=== PATIENT | female | born 1960 | race African-American/Black ===

== ENCOUNTER → 2017-01-26 | Outpatient (CLI) | payer OTHER ==
[2017-01-26 11:13] LABS: BLOOD UREA NITROGEN 17 mg/dL (7-18)
[2017-01-26 11:22] LABS: ASPARTATE AMINO TRANSFERASE 11 U/L (15-37)
[2017-01-27 16:07] LABS: ANA DIRECT (REF) Negative (Negative)
== END | disposition home or self-care (01) ==
LOC: LAB 10:30
PROVIDERS: ATTEND Internal Medicine
DX: R74.8 Abnormal levels of other serum enzymes (principal); R79.82 Elevated C-reactive protein (CRP); M50.30 Other cervical disc degeneration, unspecified cervical region; M25.579 Pain in unspecified ankle and joints of unspecified foot; M25.549 Pain in joints of unspecified hand; E78.00 Pure hypercholesterolemia, unspecified; M54.5 Low back pain; R73.01 Impaired fasting glucose; M25.50 Pain in unspecified joint
CPT/HCPCS: 36415; 80053; 80061; 82977; 83036; 84550; 85651; 86038; 86140; 86200; 86430

== ENCOUNTER → 2017-02-08 | Outpatient (CLI) | payer OTHER | END | disposition home or self-care (01) | LOC: CFH 15:58 | PROVIDERS: ATTEND Internal Medicine | DX: M19.072 Primary osteoarthritis, left ankle and foot (principal); M70.52 Other bursitis of knee, left knee; G89.29 Other chronic pain; R60.1 Generalized edema ==

== ENCOUNTER → 2018-01-02 | Outpatient (CLI) | payer OTHER | LOC: CFH 10:40 | PROVIDERS: ATTEND Internal Medicine | DX: Z12.31 Encounter for screening mammogram for malignant neoplasm of breast (principal) | CPT/HCPCS: 77063; 77067 ==

== ENCOUNTER → 2018-02-20 | Outpatient (CLI) | payer OTHER ==
[2018-02-20 12:21] LABS: BASOPHILS # (AUTO) 0.04 x10^3/uL (0-0.1); BASOPHILS % (AUTO) 1 % (0-1); EOSINOPHILS # (AUTO) 0.05 x10^3/uL (0-0.4); EOSINOPHILS % (AUTO) 1 % (1-7); LYMPHOCYTES # (AUTO) 3.14 x10^3/uL (1-3.4); LYMPHOCYTES % (AUTO) 42 % (22-44); MD NO; MEAN CORPUSCULAR HEMOGLOBIN 26.9 pg (27.0-34.8); MEAN CORPUSCULAR HGB CONC 32.8 g/dL (32.4-35.8); MEAN CORPUSCULAR VOLUME 81.9 fL (80-100); MEAN PLATELET VOLUME 9.2 fL (7.4-10.4); MONOCYTES # (AUTO) 0.28 x10^3/uL (0.2-0.8); MONOCYTES % (AUTO) 4 % (2-9); NEUTROPHILS # (AUTO) 4.02 x10^3/uL (1.8-6.8); NEUTROPHILS % (AUTO) 53 % (42-75); PLATELET COUNT 255 x10^3/uL (130-400); RED CELL DISTRIBUTION WIDTH 15.4 % (9.6-15.2)
[2018-02-20 12:28] LABS: HCT (SEDRATE) 37.7 % (34.6-47.8)
[2018-02-20 12:31] LABS: CHLORIDE 107 mmol/L (98-107)
[2018-02-20 12:44] LABS: ALANINE AMINOTRANSFERASE 19 U/L (12-78); ALBUMIN 3.5 g/dL (3.4-5.0); ALKALINE PHOSPHATASE 103 U/L (45-117); ANION GAP 8 mmol/L (5-15); BILIRUBIN,TOTAL 0.5 mg/dL (0.2-1.0); CALCIUM 8.7 mg/dL (8.5-10.1); CHOL/HDL RATIO 4.4; CHOLESTEROL, TOTAL 177 mg/dL (140-239); CREATININE 0.87 mg/dL (0.55-1.02); HDL CHOL % 23 % (28-40); HDL CHOLESTEROL (DIRECT) 40 mg/dL (40-60); LDL CHOLESTEROL,CALCULATED 113 mg/dL (54-169); LDL/HDL RATIO 2.8 (0.5-3.0); TOTAL PROTEIN 7.5 g/dL (6.4-8.2); TRIGLYCERIDES 122 mg/dL (50-200); VLDL CHOLESTEROL 24 mg/dL (0-25)
[2018-02-20 12:58] LABS: HEMOGLOBIN A1C 6.6 % (4.2-6.3)
== END | disposition home or self-care (01) ==
LOC: LAB 12:01
PROVIDERS: ATTEND Internal Medicine
DX: E78.00 Pure hypercholesterolemia, unspecified (principal); K21.9 Gastro-esophageal reflux disease without esophagitis; M25.549 Pain in joints of unspecified hand; R73.03 Prediabetes
CPT/HCPCS: 36415; 80053; 80061; 83036; 85025; 85651; 86140

== ENCOUNTER → 2018-06-12 | Outpatient (CLI) | payer OTHER ==
[2018-06-12 12:57] LABS: ANION GAP 8 mmol/L (5-15); CALCIUM 8.9 mg/dL (8.5-10.1); CHLORIDE 110 mmol/L (98-107); CREATININE 0.91 mg/dL (0.55-1.02)
[2018-06-12 13:02] LABS: HEMOGLOBIN A1C 6.1 % (4.2-6.3)
== END | disposition home or self-care (01) ==
LOC: LAB 12:29
PROVIDERS: ATTEND Internal Medicine
DX: E11.9 Type 2 diabetes mellitus without complications (principal)
CPT/HCPCS: 36415; 80048; 82043; 82570; 83036

== ENCOUNTER → 2019-03-07 | Outpatient (CLI) | payer OTHER ==
[2019-03-07 10:32] LABS: ALANINE AMINOTRANSFERASE 19 U/L (12-78); ANION GAP 8 mmol/L (5-15); CHLORIDE 108 mmol/L (98-107); CHOLESTEROL, TOTAL 170 mg/dL (140-239); CREATININE 0.96 mg/dL (0.55-1.02); TRIGLYCERIDES 159 mg/dL (50-200); VLDL CHOLESTEROL 32 mg/dL (0-25)
[2019-03-07 10:34] LABS: CHOL/HDL RATIO 3.3; HDL CHOL % 30 % (28-40); HDL CHOLESTEROL (DIRECT) 51 mg/dL (40-60); LDL CHOLESTEROL,CALCULATED 87 mg/dL (54-169); LDL/HDL RATIO 1.7 (0.5-3.0)
[2019-03-07 10:56] LABS: HEMOGLOBIN A1C 6.3 % (4.2-6.3)
== END | disposition home or self-care (01) ==
LOC: LAB 10:06
PROVIDERS: ATTEND Internal Medicine
DX: E78.00 Pure hypercholesterolemia, unspecified (principal); E11.9 Type 2 diabetes mellitus without complications
CPT/HCPCS: 36415; 80048; 80061; 83036; 84460

== ENCOUNTER → 2019-03-22 | Outpatient (CLI) | payer OTHER | END | disposition home or self-care (01) | LOC: RAD 08:50 | PROVIDERS: ATTEND Internal Medicine | DX: M18.9 Osteoarthritis of first carpometacarpal joint, unspecified (principal); M19.032 Primary osteoarthritis, left wrist; M25.732 Osteophyte, left wrist; E11.9 Type 2 diabetes mellitus without complications; E78.00 Pure hypercholesterolemia, unspecified; K21.9 Gastro-esophageal reflux disease without esophagitis; Z88.0 Allergy status to penicillin; Z88.1 Allergy status to other antibiotic agents; Z88.5 Allergy status to narcotic agent; Z88.6 Allergy status to analgesic agent; Z79.84 Long term (current) use of oral hypoglycemic drugs ==

== ENCOUNTER → 2019-09-26 | Outpatient (CLI) | payer OTHER ==
[2019-09-26 08:15] LABS: MEAN CORPUSCULAR HEMOGLOBIN 26.5 pg (27.0-34.8); MEAN CORPUSCULAR HGB CONC 32.1 g/dL (32.4-35.8); MEAN CORPUSCULAR VOLUME 82.6 fL (80-100); MEAN PLATELET VOLUME 8.8 fL (7.4-10.4); PLATELET COUNT 285 x10^3/uL (130-400); RED BLOOD COUNT 5.03 x10^6/uL (3.82-5.3); RED CELL DISTRIBUTION WIDTH 14.8 % (9.6-15.2)
[2019-09-26 08:25] LABS: ALBUMIN 3.7 g/dL (3.4-5.0); ANION GAP 8 mmol/L (5-15); CALCIUM 8.8 mg/dL (8.5-10.1); CHLORIDE 112 mmol/L (98-107)
[2019-09-26 09:19] LABS: ALANINE AMINOTRANSFERASE 16 U/L (12-78); ALKALINE PHOSPHATASE 107 U/L (45-117); BILIRUBIN,TOTAL 0.5 mg/dL (0.2-1.0); CHOL/HDL RATIO 4.4; CHOLESTEROL, TOTAL 191 mg/dL (140-239); CREATININE 0.96 mg/dL (0.55-1.02); HDL CHOL % 23 % (28-40); HDL CHOLESTEROL (DIRECT) 43 mg/dL (40-60); LDL CHOLESTEROL,CALCULATED 126 mg/dL (54-169); LDL/HDL RATIO 2.9 (0.5-3.0); TOTAL PROTEIN 7.7 g/dL (6.4-8.2); TRIGLYCERIDES 109 mg/dL (50-200); VLDL CHOLESTEROL 22 mg/dL (0-25)
[2019-09-26 10:19] LABS: HCT (SEDRATE) 41.6 % (34.6-47.8)
== END | disposition home or self-care (01) ==
LOC: LAB 07:58
PROVIDERS: ATTEND Internal Medicine
DX: E11.9 Type 2 diabetes mellitus without complications (principal); E78.00 Pure hypercholesterolemia, unspecified; K21.9 Gastro-esophageal reflux disease without esophagitis; K59.00 Constipation, unspecified; M25.50 Pain in unspecified joint; M25.532 Pain in left wrist; M25.549 Pain in joints of unspecified hand; R70.0 Elevated erythrocyte sedimentation rate; R74.8 Abnormal levels of other serum enzymes; R79.82 Elevated C-reactive protein (CRP)
CPT/HCPCS: 36415; 80053; 80061; 82043; 82570; 83036; 84443; 85027; 85651; 86140

== ENCOUNTER → 2020-03-03 | Outpatient (CLI) | payer OTHER | END | disposition home or self-care (01) | LOC: CFH 12:06 | PROVIDERS: ATTEND Internal Medicine | DX: R07.89 Other chest pain (principal) | CPT/HCPCS: 78452; 93017; A9502 ==

== ENCOUNTER 2020-05-15 12:15 | Outpatient (CLI) | payer OTHER ==
[2020-05-15] MEDS ORDERED: OMNIPAQUE 350 MG/ML, 100ML BOTTLE ONE ×2 (14:19→14:20)
== END 2020-05-15 23:59 | disposition home or self-care (01) ==
LOC: CFH 12:15
PROVIDERS: ATTEND Internal Medicine
DX: R10.31 Right lower quadrant pain (principal); R07.89 Other chest pain; Z90.710 Acquired absence of both cervix and uterus
CPT/HCPCS: 71260; 74177; Q9967

== ENCOUNTER → 2020-06-15 | Outpatient (CLI) | payer OTHER | END | disposition home or self-care (01) | LOC: CFH 13:18 | PROVIDERS: ATTEND Internal Medicine | DX: Z12.31 Encounter for screening mammogram for malignant neoplasm of breast (principal) | CPT/HCPCS: 77063; 77067 ==

== ENCOUNTER → 2020-07-16 | Outpatient (CLI) | payer OTHER ==
[2020-07-16 10:02] LABS: BASOPHILS % (AUTO) 1 % (0-1); EOSINOPHILS % (AUTO) 1 % (1-7); LYMPHOCYTES % (AUTO) 41 % (22-44); MEAN CORPUSCULAR HEMOGLOBIN 26.3 pg (27.0-34.8); MEAN CORPUSCULAR HGB CONC 31.5 g/dL (32.4-35.8); MEAN PLATELET VOLUME 8.8 fL (7.4-10.4); MONOCYTES % (AUTO) 4 % (2-9); NEUTROPHILS % (AUTO) 54 % (42-75); PLATELET COUNT 289 x10^3/uL (130-400); RED BLOOD COUNT 4.93 x10^6/uL (3.82-5.3); RED CELL DISTRIBUTION WIDTH 14.4 % (9.6-15.2)
[2020-07-16 10:08] LABS: ALANINE AMINOTRANSFERASE 18 U/L (12-78); ALBUMIN 3.8 g/dL (3.4-5.0); ANION GAP 6 mmol/L (5-15); CALCIUM 9.4 mg/dL (8.5-10.1); CHLORIDE 109 mmol/L (98-107); CREATININE 0.91 mg/dL (0.55-1.02)
[2020-07-16 10:13] LABS: MD NO
[2020-07-16 10:16] LABS: ALKALINE PHOSPHATASE 110 U/L (45-117); BILIRUBIN,TOTAL 0.4 mg/dL (0.2-1.0); CHOL/HDL RATIO 4.1; CHOLESTEROL, TOTAL 187 mg/dL (140-239); HDL CHOL % 25 % (28-40); HDL CHOLESTEROL (DIRECT) 46 mg/dL (40-60); LDL CHOLESTEROL,CALCULATED 111 mg/dL (54-169); LDL/HDL RATIO 2.4 (0.5-3.0); TOTAL PROTEIN 8.1 g/dL (6.4-8.2); TRIGLYCERIDES 148 mg/dL (50-200); VLDL CHOLESTEROL 30 mg/dL (0-25)
[2020-07-16 10:38] LABS: HCT (SEDRATE) 41.2 % (34.6-47.8)
== END | disposition home or self-care (01) ==
LOC: LAB 09:34
PROVIDERS: ATTEND Internal Medicine
DX: E11.9 Type 2 diabetes mellitus without complications (principal); E78.00 Pure hypercholesterolemia, unspecified; K21.9 Gastro-esophageal reflux disease without esophagitis; R07.89 Other chest pain; R10.31 Right lower quadrant pain; R70.0 Elevated erythrocyte sedimentation rate; R74.8 Abnormal levels of other serum enzymes; R79.82 Elevated C-reactive protein (CRP)
CPT/HCPCS: 36415; 80053; 80061; 82043; 82570; 83036; 85025; 85651; 86140

== ENCOUNTER 2021-05-06 10:12 | Outpatient (CLI) | payer OTHER ==
[2021-05-06 10:36] LABS: BASOPHILS % (AUTO) 1 % (0-1); EOSINOPHILS % (AUTO) 1 % (1-7); LYMPHOCYTES % (AUTO) 39 % (22-44); MEAN CORPUSCULAR HGB CONC 32.8 g/dL (32.4-35.8); MEAN PLATELET VOLUME 8.7 fL (7.4-10.4); MONOCYTES % (AUTO) 4 % (2-9); NEUTROPHILS % (AUTO) 55 % (42-75); PLATELET COUNT 255 x10^3/uL (130-400); RED CELL DISTRIBUTION WIDTH 14.7 % (9.6-15.2)
[2021-05-06 10:43] LABS: ALBUMIN 3.7 g/dL (3.4-5.0); ANION GAP 8 mmol/L (5-15); CALCIUM 9.6 mg/dL (8.5-10.1); CHLORIDE 108 mmol/L (98-107)
[2021-05-06 10:59] LABS: BILIRUBIN,TOTAL 0.5 mg/dL (0.2-1.0); CHOLESTEROL, TOTAL 198 mg/dL (140-239)
[2021-05-06 11:10] LABS: ALANINE AMINOTRANSFERASE 26 U/L (12-78)
[2021-05-06 11:21] LABS: ALKALINE PHOSPHATASE 108 U/L (45-117); HDL CHOL % 25 % (28-40); HDL CHOLESTEROL (DIRECT) 49 mg/dL (40-60); LDL CHOLESTEROL,CALCULATED 120 mg/dL (54-169); LDL/HDL RATIO 2.4 (0.5-3.0); TRIGLYCERIDES 143 mg/dL (50-200); VLDL CHOLESTEROL 29 mg/dL (0-25)
[2021-05-06 12:04] LABS: HCT (SEDRATE) 40.5 % (34.6-47.8)
== END 2021-05-06 23:59 | disposition home or self-care (01) ==
LOC: LAB 10:12
PROVIDERS: ATTEND Internal Medicine
DX: E11.9 Type 2 diabetes mellitus without complications (principal); E78.00 Pure hypercholesterolemia, unspecified; K21.9 Gastro-esophageal reflux disease without esophagitis; M25.549 Pain in joints of unspecified hand; M54.5 Low back pain; R07.89 Other chest pain; R10.31 Right lower quadrant pain; R70.0 Elevated erythrocyte sedimentation rate; R74.8 Abnormal levels of other serum enzymes; R79.82 Elevated C-reactive protein (CRP)
CPT/HCPCS: 36415; 80053; 80061; 82043; 82570; 83036; 85025; 85651; 86140